=== PATIENT | female | born 1940 | race Caucasian/White ===

== ENCOUNTER 2018-08-26 14:33 | Emergency (ER) | payer BC, MEDICARE ==
--- NOTE | 2018-08-26 15:57 | ED ---
Upper Extremity Pain - HPI Summary HPI Summary: 77 yr old female with the complaint of right shoulder pain. The patient reports that she fell this morning. No LOC. She tripped. Pain located in right shoulder, 8/10, limited ROM. She denies other injuries. No numbness or weakness in the right hand. The patient tripped on a rug this morning. The patient did not take her BP med today. - History of Current Complaint Chief Complaint: UCUpperExtremity Stated Complaint: FALL, RIGHT HAND INJURY Time Seen by Provider: 08/26/18 15:12 - Allergies/Home Medications Allergies/Adverse Reactions: Allergies Allergy/AdvReac Type Severity Reaction Status Date / Time No Known Allergies Allergy Verified 08/26/18 15:09 Home Medications: Home Medications Benazepril/Hydrochlorothiazide [Benazepril HCl/Hydrochlor 20-25 mg-] 1 tab DAILY 08/26/18 [History Confirmed 08/26/18] Colestipol HCl 1 gm TID 08/26/18 [History Confirmed 08/26/18] Ferrous Sulfate TAB* 1 tab DAILY 08/26/18 [History Confirmed 08/26/18] Meclizine TAB* [Antivert 12.5 TAB*] 1 tab TID PRN 08/26/18 [History Confirmed ] Pantoprazole TAB (NF) [Protonix TAB (NF)] 1 tab DAILY 08/26/18 [History Confirmed 08/26/18] traMADol TAB* [Ultram*] 1 - 2 tab TID PRN 08/26/18 [History Confirmed 08/26/18] PMH/Surg Hx/FS Hx/Imm Hx Endocrine/Hematology History: Denies: Hx Diabetes, Hx Thyroid Disease Cardiovascular History: Reports: Hx Hypertension Respiratory History: Denies: Hx Asthma, Hx Chronic Obstructive Pulmonary Disease (COPD) GI History: Denies: Hx Ulcer - Surgical History Surgery Procedure, Year, and Place: tubal. gallbladder Infectious Disease History: No Infectious Disease History: Denies: Hx Hepatitis, Traveled Outside the [place] in Last 30 Days - Family History Known Family History: Positive: Unknown - adopted - Social History Lives: With Family Alcohol Use: None Substance Use Type: Reports: None Smoking Status (MU): Never Smoked Tobacco Review of Systems Constitutional: Negative Positive: Other - right shoulder pain All Other Systems Reviewed And Are Negative: Yes Physical Exam Triage Information Reviewed: Yes Vital Signs On Initial Exam: Initial Vitals Temp Pulse Resp Pulse Ox 98.3 F 65 16 97 08/26/18 15:02 08/26/18 15:02 08/26/18 15:02 08/26/18 15:02 Vital Signs Reviewed: Yes Appearance: Positive: Well-Appearing, No Pain Distress Skin: Positive: Warm, Skin Color Reflects Adequate Perfusion Head/Face: Positive: Normal Head/Face Inspection Eyes: Positive: EOMI ENT: Positive: Normal ENT inspection Neck: Positive: Nontender Respiratory/Lung Sounds: Positive: Clear to Auscultation, Breath Sounds Present Cardiovascular: Positive: RRR. Negative: Murmur Abdomen Description: Positive: Nontender Musculoskeletal: Positive: Other - tender over the proximal humerus, and limited ROM at the right shoulder. Neuro vascular intact right hand. Right hand with small bruise right DIP ring finger. No wrist, forearm, and elbow. Neurological: Positive: Sensory/Motor Intact, Alert, Oriented to Person Place, Time, CN Intact II-III Psychiatric: Positive: Normal - Lesli Coma Scale Best Eye Response: 4 - Spontaneous Best Motor Response: 6 - Obeys Commands Best Verbal Response: 5 - Oriented Coma Scale Total: 15 Diagnostics - Vital Signs Vital Signs Temp Pulse Resp BP Pulse Ox 08/26/18 15:29 180/90 08/26/18 15:02 98.3 F 65 16 97 - Laboratory Lab Statement: Any lab studies that have been ordered have been reviewed, and results considered in the medical decision making process. - Radiology shoulder, humerus Radiology Interpretation Completed By: ED Physician - proximal humeral neck fracture Course/Dx - Course Course Of Treatment: 77 yr old with proximal humerus fracture. Plan: Sling. Referral to Ortho for follow up. Neuro vasc intact. - Diagnoses Provider Diagnoses: Humerus surgical neck fracture, Nondisplaced fracture, Hypertension Discharge - Sign-Out/Discharge Documenting (check all that apply): Patient Departure All imaging exams completed and their final reports reviewed: Yes - Discharge Plan Condition: Good Disposition: HOME Patient Education Materials: Hypertension (ED), Proximal Humerus Fracture (ED) Referrals: Karyna Cisneros [Primary Care Provider] - 2 Days Cyril Dior MD [Medical Doctor] - 1 Day - Billing Disposition and Condition Condition: GOOD Disposition: Home
[2018-08-26 16:06] VITALS: BP 180/90
== END 2018-08-26 16:24 | disposition home or self-care (01) ==
LOC: UCCORT 14:33
DX: S42.214A Unspecified nondisplaced fracture of surgical neck of right humerus, initial encounter for closed fracture (principal); W01.0XXA Fall on same level from slipping, tripping and stumbling without subsequent striking against object, initial encounter; Y93.9 Activity, unspecified; Y92.009 Unspecified place in unspecified non-institutional (private) residence as the place of occurrence of the external cause; I10 Essential (primary) hypertension
CPT/HCPCS: 99202; G0463